=== PATIENT | male | born 1950 | race Two or more races ===

== ENCOUNTER 2018-06-13 18:23 | Emergency (ER) | payer MEDICARE ==
[~2018-06-13] VITALS: Ht 188 cm; Wt 95.0 kg
[2018-06-13 18:49] VITALS: BP 130/80
== END 2018-06-13 19:51 | disposition left against medical advice (07) ==
LOC: ER 18:23
DX: Z53.21 Procedure and treatment not carried out due to patient leaving prior to being seen by health care provider (principal)